=== PATIENT | female | born 1985 | race Caucasian/White ===

== ENCOUNTER 2024-12-12 06:14 | Day surgery (SDC) | payer BC, SELFPAY ==
--- NOTE | 2024-12-09 12:32 | PTCARENOTE ---
During the patient interview, she stated that she takes a semi glutide compound every Sunday for weight loss. Her last dose was 12/06/24 and her surgery is scheduled for 12/12/24. Dr. Blanco made aware and said that she can proceed with her surgery
as planned.
[2024-12-12 12:45] VITALS: BP 114/68
[2024-12-12 13:38] VITALS: BMI 29.3
[2024-12-12 16:11] VITALS: BP 104/68
[2024-12-12 16:15] VITALS: BP 89/49
[2024-12-12 16:16] VITALS: BP 109/70
[2024-12-12 16:30] VITALS: BP 109/73
[2024-12-12 16:45] VITALS: BP 102/69
== END 2024-12-12 17:11 | disposition home or self-care (01) ==
LOC: SDS 06:14
PROVIDERS: ATTENDING PHYSICIAN Podiatrist Foot & Ankle Surgery; FAMILY PHYSICIAN Nurse Practitioner
DX: D21.22 Benign neoplasm of connective and other soft tissue of left lower limb, including hip (principal); D48.5 Neoplasm of uncertain behavior of skin
CPT/HCPCS: 28043; 88304; 88341; 88342